=== PATIENT | male | born 1980 | race Two or more races ===

== ENCOUNTER 2022-11-09 09:37 | Outpatient (CLI) | payer OTHER | END 2022-11-09 09:40 | disposition home or self-care (01) | LOC: SONOGRAMA 09:37 | PROVIDERS: ATTEND Pathology Anatomic Pathology & Clinical Pathology | DX: D11.0 Benign neoplasm of parotid gland (principal) ==

== ENCOUNTER 2023-01-04 06:15 | Day surgery (SDC) | payer OTHER ==
[~2023-01-04] VITALS: Ht 175.3 cm; Wt 90.7 kg
== END 2023-01-04 16:20 | disposition home or self-care (01) ==
LOC: CIR.AMB 06:15
PROVIDERS: ATTEND Otolaryngology
DX: D35.1 Benign neoplasm of parathyroid gland (principal); D76.3 Other histiocytosis syndromes; D11.0 Benign neoplasm of parotid gland; Z20.822 Contact with and (suspected) exposure to COVID-19